=== PATIENT | female | born 1960 | race Hispanic/Latino ===

== ENCOUNTER → 2018-12-19 | Outpatient (CLI) | payer BC ==
[~2018-12-19] VITALS: Ht 160 cm; Wt 139.7 kg
[~2018-12-19] MED LIST: REGADENOSON 0.4 MG/5 ML PF SYG IVP SCH
== END | disposition home or self-care (01) ==
LOC: SHCH 08:24
PROVIDERS: ATTEND Internal Medicine Cardiovascular Disease
DX: R07.9 Chest pain, unspecified (principal); R94.31 Abnormal electrocardiogram [ECG] [EKG]
CPT/HCPCS: 78452; 93017; 96374; A9500 ×2; J2785

== ENCOUNTER → 2019-01-23 | Outpatient (CLI) | payer BC ==
[~2019-01-23] MED LIST changes: +ACET-66 PO; +ALBU90AE IH; +ASPI-555 PO; +BENZ200C53 PO; +CALC-1034 PO; +CALC750T4 PO; +CRAN250T2 PO; +CYAN1TAB44 PO; +FLAX100020 PO; +FLUTICASONE PROPI; +GARLIC EXTRACT PO; +IBUP-2353 PO; +MELA3TAB PO; +METOPROLOL ER SUCC; +MULT-1267 PO; +OMEG-125 PO; +PRAV20TA4 PO; +PRED20TA3 PO; -REGADENOSON 0.4 MG/5 ML PF SYG IVP SCH; +TURM538C PO; +VITA400C70 PO
== END | disposition home or self-care (01) ==
LOC: RAH 12:53
PROVIDERS: ATTEND Internal Medicine Cardiovascular Disease
DX: R91.1 Solitary pulmonary nodule (principal); Z90.49 Acquired absence of other specified parts of digestive tract
CPT/HCPCS: 71250

== ENCOUNTER 2019-01-27 05:48 | Day surgery (SDC) | payer BC ==
[2019-01-17 08:46] LABS: EOSINOPHILS % (AUTO) 1.3 % (0.0-8.0); HEMATOCRIT 39.2 % (36-48); LYMPHOCYTES % (AUTO) 21.8 % (21.0-51.0); MEAN CORPUSCULAR HGB CONC 33.3 g/dL (32.0-36.0); MEAN CORPUSCULAR VOLUME 87.2 fL (79-99); MONOCYTES % (AUTO) 5.1 % (3.0-13.0); NEUTROPHILS % (AUTO) 70.8 % (40.0-77.0); PLATELET COUNT (AUTO) 251 K/uL (130-400); RED CELL DISTRIBUTION WIDTH 13.9 % (11.0-15.5); WHITE BLOOD COUNT (AUTO) 8.3 K/uL (4.8-10.8)
[2019-01-17 08:50] LABS: APPEARANCE,URINE Clear (CLEAR); BILIRUBIN,URINE Negative (NEGATIVE); COLOR,URINE Yellow (YELLOW); GLUCOSE, URINE (UA) Negative (NEGATIVE); KETONES,URINE Negative (NEGATIVE); LEUKOCYTE ESTERASE ,URINE Small (NEGATIVE); NITRATE,URINE Negative (NEGATIVE); OCCULT BLOOD,URINE Negative (NEGATIVE); PH,URINE 6.5 (5.0-8.0); PROTEIN,URINE Negative (NEGATIVE); UROBILINOGEN,URINE 0.2 mg/dL (0.2-1.0)
[2019-01-17 08:51] LABS: BACTERIA,URINE Rare /HPF (None Seen); RBC,URINE 0-1 /HPF (0-1); SQUAMOUS EPITHELIAL CELL,UR Rare /HPF (0-2)
[2019-01-17 08:52] LABS: CREATININE 0.6 mg/dL (0.5-1.5); POTASSIUM 3.9 mmol/L (3.5-5.1)
[2019-01-17 08:54] VITALS: BP 165/68
[2019-01-17 08:55] LABS: INR 0.92 (0.85-1.15); PARTIAL THROMBOPLASTIN TIME 28.9 SEC (26.3-35.5); PROTHROMBIN TIME 9.7 SEC (9.6-11.6)
--- NOTE | 2019-01-18 14:54 | NUR ---
chest xray abnormal chest xray reported to Becky MCKEON with dr. carballo,he states procedure to be cancelled tomorrow. pt will be send for further testing. as per Cheikh he will call patient and speak to patient about chest xray findings.
[2019-01-27] VITALS (8 sets, daily range): BP systolic 133–160; BP diastolic 69–73
[~2019-01-27] VITALS: Ht 158.8 cm; Wt 137.1 kg
[~2019-01-27 05:48] MED LIST changes: +METHYLPREDNISOLONE SOD SUCC 125MG/2ML VIAL IVP SCH
[2019-01-27] MEDS ORDERED: PROBIOTIC PO (07:33)
[2019-01-27] MEDS ORDERED: BEANO PO (07:33)
[2019-01-27] MEDS ORDERED: [UNRECOGNIZED DRUG - OTHER] PO (07:38)
[2019-01-27] MEDS ORDERED: HEPARIN SODIUM 1000UNIT/ML 10ML VIAL ONE ×2 (09:05→10:06)
[2019-01-27] MEDS ORDERED: VERAPAMIL HCL 2.5 MG/ML VIAL ONE ×2 (09:05→10:06)
[2019-01-27] MEDS ORDERED: IOHEXOL 350 MG/ML 100ML INFUS..BTL IV ONE (09:06)
[2019-01-27] MEDS ORDERED: NITROGLYCERIN 5 MG/ML 10 ML VIAL IV ONE (09:06)
[2019-01-27] MEDS ORDERED: LIDOCAINE HCL 2% 20ML ONE (09:06)
[2019-01-27] MEDS ORDERED: IOHEXOL-350 75 ML VIAL IV ONE (09:06)
[2019-01-27] MEDS ORDERED: IOHEXOL-350 50ML VIAL IV ONE ×3 (09:06→10:58)
[2019-01-27] MEDS ORDERED: SODIUM CHLORIDE 0.9% 1000ML 1,000 ML IV ONE (09:08)
--- NOTE | 2019-01-27 09:15 | NUR ---
PROCEDURE PT TAKEN TO [facility]ORER MACHINE VIA BED FOR PROCEDURE. PT AWAKE AND ALERT, NO DISTRESS NOTED. SON AT BEDSIDE
[2019-01-27] MEDS ORDERED: LIDOCAINE HCL 1% 20 ML VIAL ONE ×2 (10:17→10:32)
[2019-01-27] MEDS ORDERED: FENTANYL CITRATE PF 50 MCG/1 ML 2ML VIAL ONE (10:42)
[2019-01-27] MEDS ORDERED: LABETALOL 20 MG/4 ML DISP.SYRIN IV ONE (11:03)
[2019-01-27] MEDS ORDERED: SODIUM CHLORIDE 0.9% 1000ML 1,000 ML IV SCH (11:16)
[2019-01-27] MEDS ORDERED: GLUCAGON 1MG KIT 1 MG ML IM PRN (11:30)
[2019-01-27] MEDS ORDERED: DEXTROSE 50%-WATER 50 ML DISP.SYRIN IV PRN (11:30)
--- NOTE | 2019-01-27 11:45 | NUR ---
POST RECEIVED PT FROM [facility] [employer], S/P CORONARY /RENAL ANGIOGRAM , LEFT GROIN PERCLOSE DRESSING DRY AND INTACT, ATTEMPTED TO GO ZAIN RIGHT RADIAL / RIGHT GROIN UNSUCCESSFUL ATTEMPTS DRESSING TO BOTH AREAS DRY AND INTACT, RIGHT ARM WITH SLIGHT SWELLING, GOOD RADIAL PULSE. VS STABLE ON ARRIVAL. PT INSTRUCTED TOKEEP BEDREST FOR 2HRS. PLAN OF CARE DISCUSS WITH PATIENT/ FAMILY,
--- NOTE | 2019-01-27 15:20 | NUR ---
dc dc instructions given to pt / pts son, instructed to f/u with dr. carballo, to continue home meds. left groin perclose dressing dry and intact, right groin and right radial small pressure dressing to site dry and intact from attempt to perform coronary angiogram . see post cath assessment. piv removed to left hand site asymptomatic, catheter intact,
--- NOTE | 2019-01-27 15:55 | NUR ---
dc pt dc home via [facility], no distress noted. denies any pain or discomforts. accompanied by son.
== END 2019-01-27 15:55 | disposition home or self-care (01) ==
LOC: DAH 05:48
PROVIDERS: ATTEND Internal Medicine Cardiovascular Disease
DX: I25.118 Atherosclerotic heart disease of native coronary artery with other forms of angina pectoris (principal); R07.9 Chest pain, unspecified; I10 Essential (primary) hypertension; Z68.43 Body mass index [BMI] 50.0-59.9, adult; Z98.890 Other specified postprocedural states; Z79.82 Long term (current) use of aspirin; Z79.899 Other long term (current) drug therapy; E11.9 Type 2 diabetes mellitus without complications; E66.9 Obesity, unspecified; Z88.8 Allergy status to other drugs, medicaments and biological substances
CPT/HCPCS: 36252; 36415; 71045; 80048; 81001; 82948 ×2; 85025; 85610; 85730; 93005; 93458; A4606; A4649; C1760; C1894 ×3; J1644 ×2; J2930; J3010; J3490 ×3; J7030; Q9965; Q9967 ×3; 99156; 99157

== ENCOUNTER → 2023-03-29 | Outpatient (CLI) | payer BC ==
[~2023-03-29] MED LIST changes: -ASPI-555 PO; +ASPI-556 PO; +BEANO PO; -IBUP-2353 PO; +IBUP-2784 PO; -MELA3TAB PO; +MELA3TAB41 PO; -METHYLPREDNISOLONE SOD SUCC 125MG/2ML VIAL IVP SCH; -PRED20TA3 PO; +PROBIOTIC PO; +VITA-348 PO; -VITA400C70 PO; +[UNRECOGNIZED DRUG - OTHER] PO
[2023-03-29 12:08] LABS: BASOPHILS # (AUTO) 0.04 K/uL (0.00-0.20); BASOPHILS % (AUTO) 0.5 % (0.0-5.0); EOSINOPHILS # (AUTO) 0.11 K/uL (0.00-0.70); EOSINOPHILS % (AUTO) 1.5 % (0.0-8.0); HEMATOCRIT 46.1 % (36-48); IMMATURE GRANULOCYTE ABSOLUTE 0.03 K/uL (0-1); LYMPHOCYTES # (AUTO) 1.4 K/uL (1.0-4.8); LYMPHOCYTES % (AUTO) 18.8 % (21.0-51.0); MEAN CORPUSCULAR HEMOGLOBIN 28.8 pg (27.0-33.0); MEAN CORPUSCULAR HGB CONC 32.3 g/dL (32.0-36.0); MONOCYTES # (AUTO) 0.6 K/uL (0.1-1.0); MONOCYTES % (AUTO) 7.5 % (3.0-13.0); NEUTROPHILS # (AUTO) 5.3 K/uL (1.8-7.7); NEUTROPHILS % (AUTO) 71.3 % (40.0-77.0); PLATELET COUNT (AUTO) 262 K/uL (130-400); RED BLOOD CELL COUNT(AUTO) 5.18 MIL/uL (4.00-5.50); RED CELL DISTRIBUTION WIDTH 13.8 % (11.0-15.5); WHITE BLOOD COUNT (AUTO) 7.5 K/uL (4.8-10.8)
[2023-03-29 12:39] LABS: ALBUMIN 3.9 g/dL (3.5-5.0); BILIRUBIN,TOTAL 0.5 mg/dL (0.2-1.0); CREATININE 0.7 mg/dL (0.5-1.5); POTASSIUM 3.9 mmol/L (3.5-5.1); TOTAL PROTEIN, SERUM 7.5 g/dL (6.0-8.3)
[2023-03-29 12:43] LABS: B-TYPE NATRIURETIC PEPTIDE 14 pg/mL (0-100)
== END | disposition home or self-care (01) ==
LOC: LAB 08:46
PROVIDERS: ATTEND Internal Medicine Cardiovascular Disease
DX: I10 Essential (primary) hypertension (principal); E78.2 Mixed hyperlipidemia
CPT/HCPCS: 36415; 80053; 80061; 83880; 85025